=== PATIENT | male | born 1995 | race Caucasian/White ===

== ENCOUNTER 2016-10-17 12:47 | Day surgery (SDC) | payer BC ==
[~2016-10-17 12:47] MED LIST: ACETAMINOPHEN 325 MG TABLET PO PRN; DEXAMETHASONE SOD PHOSPHATE 10 MG/ML VIAL IV PRN; MORPHINE SULFATE 10 MG/ML SYRG IV PRN; MORPHINE SULFATE 2 MG/ML DISP.SYRIN IV PRN; MORPHINE SULFATE 4 MG/ML SYRG IV PRN; ONDANSETRON HCL/PF 2 MG/ML VIAL IV PRN; RINGERS SOLUTION,LACTATED 1,000 ML IV PRN; ceFAZolin SODIUM 1 GM in DEXTROSE 5 % IN WATER 100 ML IV PRN; oxyCODONE HCL/ACETAMINOPHEN 1 TAB TABLET PO PRN
--- OUTSIDE RECORDS SUMMARY | 2016-10-17 12:55 | XMS REPORT | Summary of Care ---
:1995 External Reference #:[id number] Author Organization [facility] Address [address] [place] [id number] Team Providers Name Role Phone Josias Garcia Primary Care Physician Encounter Date(s): 08/16/16 - 08/16/[address] [id number] Discharge Disposition: 01 Discharged to Home or Self Care Attending Physician: Josias Garcia DO Admitting Physician: Josias Garcia DO Vital Signs No data available for this section Problem List No data available for this section Allergies, Adverse Reactions, Alerts Substance Reaction Severity Status azithromycin Active Medications amoxicillin 875 mg oral tablet 1 tab(s), Oral, BID, # 20 tab(s), 0 Refill(s), Start Date: 11/21/14 16:04:00 CDT , Pharmacy: [id number] Start Date: 11/21/14 Stop Date: 08/07/15 Status: DiscontinuedClaritin 10 mg, Oral, Daily, PRN as needed for allergy symptoms, 0 Refill(s), 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 Start Date: 08/16/16 Status: OrderedLotrisone 1%-0.05% topical cream 1 alisha, Topical, BID, # 45 gm, 0 Refill(s), Start Date: 08/16/16 14:55:00 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, Pharmacy: [id number] Start Date: 08/16/16 Stop Date: 09/13/16 Status: OrderedZithromax 250 mg oral tablet 4 tab(s), Oral, Daily, # 4 tab(s), 0 Refill(s), Start Date: 11/15/14 10:40:00 CDT, other reason (Rx) Start Date: 11/15/14 Stop Date: 08/07/15 Status: Discontinued Results Patient Viewable Results Most recent to oldest [Reference Range]: 1 Chlamydia [Not Detected] Not Detected (08/16/16 2:40 PM) Gonorrhoeae [Not Detected] Not Detected (08/16/16 2:40 PM) Immunizations No data available for this section Procedures No data available for this section Social History No data available for this section Assessment and Plan No data available for this section
--- OUTSIDE RECORDS SUMMARY | 2016-10-17 12:55 | XMS REPORT | Summary of Care ---
:1995 External Reference #:[id number] Author Organization [facility] Address [address] [place] [id number] Care Team Providers Name Role Phone Josias Garcia Primary Care Physician Encounter Date(s): 08/16/16 - 08/16/[address] [address] [facility] Discharge Disposition: 01 Discharged to Home or Self Care Attending Physician: Josias Garcia DO Referring Physician: Josias Garcia DO Vital Signs Most recent to oldest [Reference Range]: 1 Peripheral Pulse Rate [60-100 bpm] 80 bpm (08/16/16 2:14 PM) Respiratory Rate [12-20 br/min] 16 br/min (08/16/16 2:14 PM) Blood Pressure [90-130/60-90 mmHg] 138/82mmHg *HI* (08/16/16 2:14 PM) Mean Arterial Pressure, Cuff 101 mmHg (08/16/16 2:14 PM) Most recent to oldest [Reference Range]: 1 Height/Length Measured 199 cm (08/16/16 2:14 PM) Weight Dosing 129.8 kg (08/16/16 2:14 PM) Weight Measured 129.8 kg (08/16/16 2:14 PM) BSA Measured 2.64 m2 (08/16/16 2:14 PM) Body Mass Index Measured 32.78 kg/m2 (08/16/16 2:14 PM) Problem List No data available for this section Allergies, Adverse Reactions, Alerts Substance Reaction Severity Status azithromycin Active Medications amoxicillin 875 mg oral tablet 1 tab(s), Oral, BID, # 20 tab(s), 0 Refill(s), Start Date: 11/21/14 16:04:00 CDT , Pharmacy: [id number] Start Date: 11/21/14 Stop Date: 08/07/15 Status: DiscontinuedClaritin 10 mg, Oral, Daily, PRN as needed for allergy symptoms, 0 Refill(s), Start Date : 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 Start Date: 08/16/16 Status: OrderedLotrisone 1%-0.05% topical cream 1 alisha, Topical, BID, # 45 gm, 0 Refill(s), Start Date: 08/16/16 14:55:00 DISTILLERY WORKER, Pharmacy: [id number] Start Date: 08/16/16 Stop Date: 09/13/16 Status: OrderedZithromax 250 mg oral tablet 4 tab(s), Oral, Daily, # 4 tab(s), 0 Refill(s), Start Date: 11/15/14 10:40:00 CDT, other reason (Rx) Start Date: 11/15/14 Stop Date: 08/07/15 Status: Discontinued Results No data available for this section Immunizations No data available for this section Procedures No data available for this section Social History No data available for this section Assessment and Plan No data available for this section
[2016-10-17] MEDS ORDERED: RINGERS SOLUTION,LACTATED 1,000 ML IV ONE ×3 (13:30→15:55)
[2016-10-17] MEDS: OXYMETAZOLINE HCL 150 SPRAY BTL NS PRN ×2 (13:34→14:25)
[2016-10-17] MEDS ORDERED: ceFAZolin SODIUM 1 GM VIAL IV ONE (14:40)
[2016-10-17] MEDS ORDERED: LIDOCAINE HCL/EPINEPHRINE 30 ML VIAL IJ ONE (14:45)
[2016-10-17] MEDS ORDERED: MORPHINE SULFATE 4 MG/ML SYRG IV ONE (15:30)
[2016-10-17 17:07] VITALS: BP 184/98
== END 2016-10-17 12:48 | disposition home or self-care (01) ==
LOC: AMB 12:47
PROVIDERS: ATTEND Allergy & Immunology
PROC: 099M0ZZ Drainage of Nasal Septum, Open Approach (ICD-10-PCS; principal; 2016-10-17 17:20)
DX: S00.33XA Contusion of nose, initial encounter (principal); V86.99XA Unspecified occupant of other special all-terrain or other off-road motor vehicle injured in nontraffic accident, initial encounter; Z68.30 Body mass index [BMI] 30.0-30.9, adult